=== PATIENT | male | born 1950 | race Caucasian/White ===

== ENCOUNTER 2019-03-13 15:23 | Outpatient (CLI) | payer BC ==
--- NOTE | 2019-03-13 15:58 | RAD ---
CERVICAL SPINE 4 VIEWS: HISTORY: Neck pain, cervicalgia, M50.30, M54.12, M48.02, M54.2. FINDINGS: Exam includes flexion and extension lateral views. C7-T1 is partially obscured on the lateral views. The odontoid and C1 are partially obscured on the AP open mouth views. No significant prevertebral soft tissue swelling. No abnormal translation between flexion and extension. Generalized spondylos is. IMPRESSION: Generalized spondylosis. No abnormal translation. POS: C
== END 2019-03-13 15:24 | disposition home or self-care (01) ==
LOC: TBSIIMAG 15:23
PROVIDERS: ATTEND Surgery
DX: M48.02 Spinal stenosis, cervical region (principal); M50.10 Cervical disc disorder with radiculopathy, unspecified cervical region; M47.22 Other spondylosis with radiculopathy, cervical region; M54.2 Cervicalgia
CPT/HCPCS: 72050